=== PATIENT | male | born 1955 | race Two or more races ===

== ENCOUNTER 2017-10-15 08:12 | Outpatient (CLI) | payer OTHER | END 2017-10-15 13:57 | disposition home or self-care (01) | LOC: SONOGRAMA 08:12 | DX: R10.13 Epigastric pain (principal); K30 Functional dyspepsia; K62.5 Hemorrhage of anus and rectum; R63.4 Abnormal weight loss ==

== ENCOUNTER → 2018-01-20 | Outpatient (CLI) | payer OTHER | END | disposition home or self-care (01) | LOC: RAD 11:33 | DX: M54.5 Low back pain (principal) ==

== ENCOUNTER 2018-03-19 10:35 | Outpatient (CLI) | payer OTHER | END 2018-03-19 15:00 | disposition home or self-care (01) | LOC: TOM 10:35 | DX: J32.4 Chronic pansinusitis (principal) ==

== ENCOUNTER → 2018-08-06 | Outpatient (CLI) | payer OTHER | END | disposition home or self-care (01) | LOC: RAD 12:14 | DX: J40 Bronchitis, not specified as acute or chronic (principal) ==

== ENCOUNTER → 2018-08-11 13:21 | Outpatient (CLI) | payer OTHER | END | disposition home or self-care (01) | LOC: LAB 13:21 | DX: K64.4 Residual hemorrhoidal skin tags (principal); Z51.81 Encounter for therapeutic drug level monitoring ==

== ENCOUNTER 2018-08-20 07:32 | Outpatient (CLI) | payer OTHER | END 2018-08-20 07:43 | disposition home or self-care (01) | LOC: TOM 07:32 | DX: K64.4 Residual hemorrhoidal skin tags (principal); R10.84 Generalized abdominal pain | CPT/HCPCS: 74178; Q9965 ==

== ENCOUNTER 2018-09-10 10:50 | Outpatient (CLI) | payer OTHER | END 2018-09-10 16:01 | disposition home or self-care (01) | LOC: SONOGRAMA 10:50 | DX: E04.1 Nontoxic single thyroid nodule (principal); E03.5 Myxedema coma; E11.65 Type 2 diabetes mellitus with hyperglycemia ==

== ENCOUNTER 2019-01-05 09:34 | Outpatient (CLI) | payer OTHER | END 2019-01-05 09:42 | disposition home or self-care (01) | LOC: LAB 09:34 | DX: R97.21 Rising PSA following treatment for malignant neoplasm of prostate (principal) ==

== ENCOUNTER 2019-01-17 08:18 | Outpatient (CLI) | payer OTHER | END 2019-01-17 08:23 | disposition home or self-care (01) | LOC: LAB 08:18 | DX: E11.65 Type 2 diabetes mellitus with hyperglycemia (principal); K85.90 Acute pancreatitis without necrosis or infection, unspecified ==

== ENCOUNTER 2023-09-30 12:29 | Outpatient (CLI) | payer OTHER | END 2023-09-30 12:31 | disposition home or self-care (01) | LOC: RAD 12:29 | DX: M54.59 Other low back pain (principal) ==

== ENCOUNTER 2023-10-01 09:45 | Outpatient (CLI) | payer OTHER | END 2023-10-01 09:46 | disposition home or self-care (01) | LOC: NUCLEAR 09:45 | DX: I73.9 Peripheral vascular disease, unspecified (principal) ==

== ENCOUNTER 2023-10-06 09:41 | Outpatient (CLI) | payer OTHER | END 2023-10-06 09:42 | disposition home or self-care (01) | LOC: NUCLEAR 09:41 | DX: I73.9 Peripheral vascular disease, unspecified (principal) ==

== ENCOUNTER → 2024-01-01 11:07 | Outpatient (CLI) | payer OTHER | END | disposition home or self-care (01) | LOC: LAB 11:07 | PROVIDERS: ATTEND Internal Medicine Gastroenterology | DX: K57.30 Diverticulosis of large intestine without perforation or abscess without bleeding (principal); K21.00 Gastro-esophageal reflux disease with esophagitis, without bleeding; R63.4 Abnormal weight loss; K29.30 Chronic superficial gastritis without bleeding; K30 Functional dyspepsia ==

== ENCOUNTER 2024-01-02 09:47 | Outpatient (CLI) | payer OTHER ==
[2024-01-02 11:15] LABS: HEMATOCRIT 38.3 % (39.0-48.0); HEMOGLOBIN 12.9 g/dL (13-16.00); MEAN CELL VOLUME 100.3 fL (80.0-100.00); MEAN CORPUSCULAR HEMOGLOBIN 33.9 pg (27.00-32.0); MEAN CORPUSCULAR HGB CONC 33.8 g/dl (32.0-36.0); RED BLOOD COUNT 3.82 M/uL (4.00-6.00)
[2024-01-02 11:16] LABS: PLATELET COUNT 102 K/uL (150-450)
[2024-01-02 12:02] LABS: ALBUMIN 3.8 gm/dL (3.4-5.0); BILIRUBIN TOTAL 1.04 mg/dL (0.3-1.2); CALCIUM 9.2 mg/dL (8.5-10.1); CREATININE SERUM 0.8 mg/dL (0.70-1.30); GFR 95.85; GLOBULINA 3.4 G/DL (2.4-3.5); POTASSIUM 4.13 mEq/L (3.5-5.1); TOTAL PROTEIN 7.2 gm/dL (6.4-8.2)
== END 2024-01-02 09:49 | disposition home or self-care (01) ==
LOC: LAB 09:47
PROVIDERS: ATTEND Internal Medicine Gastroenterology
DX: K57.30 Diverticulosis of large intestine without perforation or abscess without bleeding (principal); K21.00 Gastro-esophageal reflux disease with esophagitis, without bleeding; R63.4 Abnormal weight loss; K29.30 Chronic superficial gastritis without bleeding; R10.13 Epigastric pain

== ENCOUNTER 2024-01-26 10:09 | Outpatient (CLI) | payer OTHER ==
[2024-01-26 12:49] LABS: HEMATOCRIT 40.1 % (39.0-48.0); HEMOGLOBIN 13.7 g/dL (13-16.00); MEAN CELL VOLUME 98.6 fL (80.0-100.00); MEAN CORPUSCULAR HEMOGLOBIN 33.6 pg (27.00-32.0); MEAN CORPUSCULAR HGB CONC 34.1 g/dl (32.0-36.0); RED BLOOD COUNT 4.06 M/uL (4.00-6.00); RED CELL DISTRIBUTION WIDTH 13.8 % (11.5-14.5)
[2024-01-26 12:50] LABS: PLATELET COUNT 103 K/uL (150-450)
[2024-01-26 13:40] LABS: % SATURACION 26.4 % (20-50); BILIRUBIN TOTAL 1.13 mg/dL (0.3-1.2); CALCIUM 9.5 mg/dL (8.5-10.1); CREATININE SERUM 0.88 mg/dL (0.70-1.30); FERRITIN 111.2 NG/ML (26-388); GFR 85.86; GLOBULINA 3.6 G/DL (2.4-3.5); POTASSIUM 4.1 mEq/L (3.5-5.1); PROSTATIC SPECIFIC ANTIGEN 2.1 NG/ML (0.010-4.00); T4 FREE 1.18 NG/ML (0.76-1.46); TOTAL PROTEIN 7.6 gm/dL (6.4-8.2); TSH 1.87 uIU/mL (0.358-3.74)
[2024-01-27 12:54] LABS: MANUAL PLATELET COUNT 258
[2024-01-27 12:58] LABS: PLATELET ESTIMATE NORMAL (NORMAL)
[2024-01-28 09:08] LABS: ALPHA FETO PROTEIN 1.8 ng/mL (0.0-8.4); hav igm Negative (Negative); hcv Non Reactive (Non Reactive); hep b c Negative (Negative)
[2024-01-28 13:07] LABS: hgb f 0 % (0.0-2.0); hgb s 0 % (0.0)
== END 2024-01-26 10:10 | disposition home or self-care (01) ==
LOC: LAB 10:09
PROVIDERS: ATTEND Internal Medicine Hematology & Oncology
DX: D69.6 Thrombocytopenia, unspecified (principal); E11.9 Type 2 diabetes mellitus without complications; R63.4 Abnormal weight loss; K29.40 Chronic atrophic gastritis without bleeding; D50.8 Other iron deficiency anemias; R79.9 Abnormal finding of blood chemistry, unspecified; I10 Essential (primary) hypertension; R74.02 Elevation of levels of lactic acid dehydrogenase [LDH]; K76.89 Other specified diseases of liver; D63.8 Anemia in other chronic diseases classified elsewhere; D55.0 Anemia due to glucose-6-phosphate dehydrogenase [G6PD] deficiency; E03.8 Other specified hypothyroidism; Z11.59 Encounter for screening for other viral diseases; B17.9 Acute viral hepatitis, unspecified; R97.20 Elevated prostate specific antigen [PSA]; R77.2 Abnormality of alphafetoprotein

== ENCOUNTER 2024-02-01 09:45 | Outpatient (CLI) | payer OTHER | END 2024-02-01 09:55 | disposition home or self-care (01) | LOC: TOM 09:45 | PROVIDERS: ATTEND Internal Medicine Hematology & Oncology | DX: R10.13 Epigastric pain (principal); K63.4 Enteroptosis; D69.6 Thrombocytopenia, unspecified; D11.9 Benign neoplasm of major salivary gland, unspecified; K29.40 Chronic atrophic gastritis without bleeding | CPT/HCPCS: 71270; 74178; Q9965 ==

== ENCOUNTER 2024-03-06 20:11 | Emergency (ER) | payer OTHER ==
[~2024-03-06] VITALS: Ht 170.2 cm; Wt 54.0 kg
[2024-03-06] MEDS ORDERED: PROPAFENONE HC225 M1 (20:45)
[2024-03-06] MEDS ORDERED: PENTOXIFYLLINE400 MG PO (20:46)
[2024-03-06] MEDS ORDERED: ACID REDUCER20 M1 (20:46)
[2024-03-06] MEDS ORDERED: FOLIC ACID20 MG (20:46)
[2024-03-06] MEDS ORDERED: ATORVASTATIN CA10 MG PO (20:46)
[2024-03-06] MEDS ORDERED: TAMS0.4C PO (20:47)
[2024-03-06] MEDS ORDERED: MIRTAZAPINE7.5 MG (20:47)
[2024-03-06] MEDS ORDERED: PROSCAR5 MG PO (20:47)
[2024-03-06] MEDS ORDERED: LANTUS SOL100 UNIT/1 SQ (20:48)
[2024-03-06] MEDS ORDERED: DRAMAMINE LESS25 MG (20:48)
[2024-03-06] MEDS ORDERED: ACETAMINOPHEN 500 MG GEL..CAP PO ONE (21:45)
[2024-03-06 22:06] LABS: HEMATOCRIT 35.9 % (39.0-48.0); HEMOGLOBIN 12.4 g/dL (13-16.00); MEAN CELL VOLUME 98.3 fL (80.0-100.00); MEAN CORPUSCULAR HEMOGLOBIN 33.9 pg (27.00-32.0); MEAN CORPUSCULAR HGB CONC 34.4 g/dl (32.0-36.0); RED BLOOD COUNT 3.65 M/uL (4.00-6.00); RED CELL DISTRIBUTION WIDTH 13.9 % (11.5-14.5)
[2024-03-06 22:09] LABS: PLATELET COUNT 119 K/uL (150-450)
[2024-03-06 22:18] LABS: ALBUMIN 4.2 gm/dL (3.4-5.0); BILIRUBIN TOTAL 1.33 mg/dL (0.3-1.2); CALCIUM 10.2 mg/dL (8.5-10.1); CREATININE SERUM 0.64 mg/dL (0.70-1.30); GLOBULINA 3.2 G/DL (2.4-3.5); POTASSIUM 3.54 mEq/L (3.5-5.1); TOTAL PROTEIN 7.4 gm/dL (6.4-8.2)
[2024-03-06] MEDS ORDERED: KETOROLAC TROMETHAMINE 30 MG VIAL IM ONE (22:45)
== END 2024-03-06 23:18 | disposition home or self-care (01) ==
LOC: ER 20:12
PROVIDERS: General Practice
DX: R53.81 Other malaise (principal); R51.9 Headache, unspecified; E11.9 Type 2 diabetes mellitus without complications; Z79.4 Long term (current) use of insulin
CPT/HCPCS: 36415; 93005; 96372; 99282; J1885

== ENCOUNTER 2024-04-22 13:41 | Outpatient (CLI) | payer OTHER ==
[~2024-04-22 13:41] MED LIST: ACID REDUCER20 M1; ATORVASTATIN CA10 MG PO; DRAMAMINE LESS25 MG; FOLIC ACID20 MG; LANTUS SOL100 UNIT/1 SQ; MIRTAZAPINE7.5 MG; PENTOXIFYLLINE400 MG PO; PROPAFENONE HC225 M1; PROSCAR5 MG PO; TAMS0.4C PO
== END 2024-04-22 13:58 | disposition home or self-care (01) ==
LOC: MRI 13:41
PROVIDERS: ATTEND Neuromusculoskeletal Medicine & OMM
DX: M51.26 Other intervertebral disc displacement, lumbar region (principal); M51.36 Other intervertebral disc degeneration, lumbar region; M50.20 Other cervical disc displacement, unspecified cervical region; M50.30 Other cervical disc degeneration, unspecified cervical region
CPT/HCPCS: 72141; 72148

== ENCOUNTER → 2024-06-17 06:59 | Outpatient (CLI) | payer OTHER ==
[2024-06-17 07:37] LABS: HEMATOCRIT 38.4 % (39.0-48.0); MEAN CORPUSCULAR HEMOGLOBIN 33.6 pg (27.00-32.0); MEAN CORPUSCULAR HGB CONC 33.9 g/dl (32.0-36.0); RED BLOOD COUNT 3.88 M/uL (4.00-6.00); RED CELL DISTRIBUTION WIDTH 13.5 % (11.5-14.5)
[2024-06-17 07:38] LABS: PLATELET COUNT 101 K/uL (150-450)
[2024-06-17 07:41] LABS: URINE PROT QUANT 24HR < 5.00 MG/DL
[2024-06-17 08:25] LABS: ALBUMIN 3.9 gm/dL (3.4-5.0); BILIRUBIN TOTAL 1.41 mg/dL (0.3-1.2); CALCIUM 9.2 mg/dL (8.5-10.1); CREATININE SERUM 0.74 mg/dL (0.70-1.30); GFR 104.87; GLOBULINA 3.1 G/DL (2.4-3.5); POTASSIUM 3.85 mEq/L (3.5-5.1)
[2024-06-17 08:31] LABS: URINE PROT QUANT 24 HR 136.25 MG/24HR (42-225)
[2024-06-17 08:32] LABS: CREATINE CLEARANCE 96.6 ML/MIN (97-137); CREATININE SERUM 0.74 mg/dL (0.8-1.3)
[2024-06-17 09:13] LABS: MANUAL PLATELET COUNT 174
[2024-06-17 09:14] LABS: PLATELET ESTIMATE NORMAL (NORMAL)
[2024-06-18 11:07] LABS: kappa lambda r 1.52 (0.26-1.65); kappa light 22.4 mg/L (3.3-19.4); lambda light 14.7 mg/L (5.7-26.3)
[2024-06-19 17:04] LABS: BETA-2-MICROGLOBULINA 1.4 mg/L (0.6-2.4)
[2024-06-21 13:11] LABS: IMM A 231 mg/dL (61-437); IMM G 1277 mg/dL (603-1613); IMM M 92 mg/dL (20-172); a:g ratio 1.4 (0.7-1.7); alpha 1 g 0.2 g/dL (0.0-0.4); alpha 2 0.6 g/dL (0.4-1.0); beta g 0.8 g/dL (0.7-1.3); gamma g 1.2 g/dL (0.4-1.8); globulin t 2.8 g/dL (2.2-3.9); m spike Not Observed g/dL (Not Observed); prot total 6.6 g/dL (6.0-8.5)
[2024-06-21 15:07] LABS: alp 0 % (.); alph 2 0 % (.); beta 0 % (.); gam 0 % (.); m spi 0 % (Not Observed); prot 20.7 mg/dL (Not Estab.)
== END | disposition home or self-care (01) ==
LOC: LAB 06:59
PROVIDERS: ATTEND Internal Medicine Hematology & Oncology
DX: D69.6 Thrombocytopenia, unspecified (principal); E11.9 Type 2 diabetes mellitus without complications; R63.4 Abnormal weight loss; K29.40 Chronic atrophic gastritis without bleeding; D50.8 Other iron deficiency anemias; I10 Essential (primary) hypertension; R79.9 Abnormal finding of blood chemistry, unspecified; R74.02 Elevation of levels of lactic acid dehydrogenase [LDH]; K76.89 Other specified diseases of liver; D47.2 Monoclonal gammopathy; C90.00 Multiple myeloma not having achieved remission; D63.1 Anemia in chronic kidney disease

== ENCOUNTER 2024-07-13 08:37 | Outpatient (CLI) | payer OTHER ==
[2024-07-13 09:29] LABS: HEMATOCRIT 37.3 % (39.0-48.0); HEMOGLOBIN 12.5 g/dL (13-16.00); MEAN CORPUSCULAR HEMOGLOBIN 34.2 pg (27.00-32.0); MEAN CORPUSCULAR HGB CONC 33.5 g/dl (32.0-36.0); RED BLOOD COUNT 3.66 M/uL (4.00-6.00); RED CELL DISTRIBUTION WIDTH 13.4 % (11.5-14.5)
[2024-07-13 09:30] LABS: PLATELET COUNT 104 K/uL (150-450)
[2024-07-13 14:45] LABS: FOLIC ACID > 20.00 ng/ml (4.78-20)
== END 2024-07-13 08:41 | disposition home or self-care (01) ==
LOC: LAB 08:37
PROVIDERS: ATTEND Internal Medicine Gastroenterology
DX: K30 Functional dyspepsia (principal); K57.30 Diverticulosis of large intestine without perforation or abscess without bleeding; K29.40 Chronic atrophic gastritis without bleeding; D64.9 Anemia, unspecified

== ENCOUNTER 2024-08-11 09:00 | Outpatient (CLI) | payer OTHER ==
[2024-08-11 09:33] LABS: HEMATOCRIT 36.8 % (39.0-48.0); HEMOGLOBIN 12.7 g/dL (13-16.00); MEAN CELL VOLUME 98.8 fL (80.0-100.00); MEAN CORPUSCULAR HGB CONC 34.4 g/dl (32.0-36.0); RED BLOOD COUNT 3.72 M/uL (4.00-6.00); RED CELL DISTRIBUTION WIDTH 14.3 % (11.5-14.5)
[2024-08-11 09:38] LABS: PLATELET COUNT 101 K/uL (150-450)
[2024-08-11 10:15] LABS: PH,URINE 5.5 (5.0-8.0); URINE APPEARANCE Clear; URINE BILIRRUBIN Negative (NEGATIVE); URINE BLOOD Negative; URINE COLOR Yellow; URINE GLUCOSE Negative (NEGATIVE); URINE KETONE Negative (NEGATIVE); URINE LEUKOCYTE Negative; URINE NITRATE Negative; URINE PROTEIN Negative (NEGATIVE); URINE UROBILINOGEN 0.2 E.U./dl
[2024-08-11 10:31] LABS: URINE BACTERIA 0 uL (0.0-1933); URINE EPITHELIAL CELLS 0.9 uL (0.0-38.8); URINE WBC 0.7 uL (0.0-23.2)
[2024-08-11 10:55] LABS: ALBUMIN 3.9 gm/dL (3.4-5.0); BILIRUBIN TOTAL 0.94 mg/dL (0.3-1.2); CHOL HDL RATIO 1.9 (0-5.0); CREATININE SERUM 0.69 mg/dL (0.70-1.30); GFR 113.69; GLOBULINA 3.1 G/DL (2.4-3.5); POTASSIUM 4.15 mEq/L (3.5-5.1); T4 TOTAL 7.22 UG/DL (4.5-12.1); TSH 1.67 uIU/mL (0.358-3.74)
== END 2024-08-11 09:03 | disposition home or self-care (01) ==
LOC: LAB 09:00
PROVIDERS: ATTEND Internal Medicine
DX: R68.89 Other general symptoms and signs (principal); I11.9 Hypertensive heart disease without heart failure; E78.00 Pure hypercholesterolemia, unspecified; R31.9 Hematuria, unspecified; E03.9 Hypothyroidism, unspecified; E11.9 Type 2 diabetes mellitus without complications

== ENCOUNTER → 2024-08-16 08:16 | Outpatient (CLI) | payer OTHER ==
[2024-08-16 09:32] LABS: HEMATOCRIT 37.9 % (39.0-48.0); HEMOGLOBIN 12.8 g/dL (13-16.00); MEAN CELL VOLUME 101.3 fL (80.0-100.00); MEAN CORPUSCULAR HEMOGLOBIN 34.2 pg (27.00-32.0); MEAN CORPUSCULAR HGB CONC 33.7 g/dl (32.0-36.0); RED BLOOD COUNT 3.74 M/uL (4.00-6.00); RED CELL DISTRIBUTION WIDTH 14.5 % (11.5-14.5)
[2024-08-16 09:36] LABS: PLATELET COUNT 102 K/uL (150-450)
[2024-08-16 09:39] LABS: ERYTHROCYTE SEDIMENTATION RATE 6 mm/hr
[2024-08-16 09:55] LABS: ALBUMIN 3.9 gm/dL (3.4-5.0); ALKALINE PHOSPHATASE 78 U/L (50-136); ALT/SGPT 15 U/L (12-78); ANION GAP 6 (10.0-20.0); AST/SGOT 12 U/L (15-37); BILIRUBIN TOTAL 0.77 mg/dL (0.3-1.2); BLOOD UREA NITROGEN 14 mg/dL (7-18); BUN CREA RATIO 20 (7.0-25.0); CALCIUM 9.1 mg/dL (8.5-10.1); CARBON DIOXIDE 32 mEq/L (21-32); CHLORIDE 107 mmol/L (98-107); CHOL HDL RATIO 1.9 (0-5.0); CHOLESTEROL 156 mg/dL (0-200); GFR 111.82; GLOBULINA 3.3 G/DL (2.4-3.5); GLUCOSE FASTING 98 mg/dL (65-100); HDL 84 mg/dl (40-60); LDL 61 mg/dl (0-130); OSMOLALITY SERUM 282 MOSM/KG (275-295); PHOSPHOKINASE CREATININE 124 U/L (39-308); POTASSIUM 4.08 mEq/L (3.5-5.1); SODIUM 141 mmol/L (136-145); T4 FREE 0.92 NG/ML (0.76-1.46); TOTAL PROTEIN 7.2 gm/dL (6.4-8.2); TRIGLYCERIDES 55 mg/dL (0-150); VLDL 11 (0-39)
[2024-08-16 09:56] LABS: C-REACTIVE PROTEIN < 0.29 MG/DL (0.00-0.29)
[2024-08-17 11:42] LABS: PROLACTIN 8.3 ng/mL (3.6-25.2)
== END | disposition home or self-care (01) ==
LOC: LAB 08:16
PROVIDERS: ATTEND Neuromusculoskeletal Medicine & OMM
DX: G62.9 Polyneuropathy, unspecified (principal); R20.2 Paresthesia of skin; E03.9 Hypothyroidism, unspecified; E11.9 Type 2 diabetes mellitus without complications; E22.1 Hyperprolactinemia; E78.00 Pure hypercholesterolemia, unspecified; E78.1 Pure hyperglyceridemia; M62.9 Disorder of muscle, unspecified

== ENCOUNTER 2024-08-22 08:40 | Outpatient (CLI) | payer OTHER ==
[2024-08-22 09:20] LABS: HEMATOCRIT 36.7 % (39.0-48.0); HEMOGLOBIN 12.3 g/dL (13-16.00); MEAN CELL VOLUME 101.2 fL (80.0-100.00); MEAN CORPUSCULAR HGB CONC 33.6 g/dl (32.0-36.0); RED BLOOD COUNT 3.63 M/uL (4.00-6.00); RED CELL DISTRIBUTION WIDTH 14.5 % (11.5-14.5)
[2024-08-22 09:21] LABS: PLATELET COUNT 105 K/uL (150-450)
[2024-08-22 10:15] LABS: ALBUMIN 3.7 gm/dL (3.4-5.0); BILIRUBIN TOTAL 0.97 mg/dL (0.3-1.2); CALCIUM 9.1 mg/dL (8.5-10.1); CREATININE SERUM 0.72 mg/dL (0.70-1.30); GFR 108.24; GLOBULINA 3.2 G/DL (2.4-3.5); POTASSIUM 4.21 mEq/L (3.5-5.1); TOTAL PROTEIN 6.9 gm/dL (6.4-8.2)
[2024-08-22 13:16] LABS: MANUAL PLATELET COUNT 294
[2024-08-22 13:18] LABS: PLATELET ESTIMATE NORMAL (NORMAL)
== END 2024-08-22 08:41 | disposition home or self-care (01) ==
LOC: LAB 08:40
PROVIDERS: ATTEND Internal Medicine Hematology & Oncology
DX: D69.6 Thrombocytopenia, unspecified (principal); E11.9 Type 2 diabetes mellitus without complications; R63.4 Abnormal weight loss; K29.40 Chronic atrophic gastritis without bleeding; I10 Essential (primary) hypertension; R74.02 Elevation of levels of lactic acid dehydrogenase [LDH]; K76.89 Other specified diseases of liver; R79.9 Abnormal finding of blood chemistry, unspecified; D50.8 Other iron deficiency anemias

== ENCOUNTER 2024-09-02 08:52 | Outpatient (CLI) | payer OTHER | END 2024-09-02 09:02 | disposition home or self-care (01) | LOC: SONOGRAMA 08:52 | PROVIDERS: ATTEND Internal Medicine | DX: R70.0 Elevated erythrocyte sedimentation rate (principal); R71.8 Other abnormality of red blood cells ==

== ENCOUNTER 2024-12-16 09:20 | Outpatient (CLI) | payer OTHER ==
[2024-12-16 11:28] LABS: PH,URINE 5.5 (5.0-8.0); URINE APPEARANCE Clear; URINE BILIRRUBIN Negative (NEGATIVE); URINE BLOOD Negative; URINE COLOR Yellow; URINE GLUCOSE Negative (NEGATIVE); URINE KETONE Negative (NEGATIVE); URINE LEUKOCYTE Negative; URINE NITRATE Negative; URINE PROTEIN Negative (NEGATIVE); URINE UROBILINOGEN 0.2 E.U./dl
[2024-12-16 11:31] LABS: URINE RBC 4.2 uL (0.0-20.8)
[2024-12-16 11:33] LABS: HEMATOCRIT 40.1 % (39.0-48.0); HEMOGLOBIN 13.7 g/dL (13-16.00); MEAN CELL VOLUME 98.6 fL (80.0-100.00); MEAN CORPUSCULAR HEMOGLOBIN 33.6 pg (27.00-32.0); MEAN CORPUSCULAR HGB CONC 34.1 g/dl (32.0-36.0); RED BLOOD COUNT 4.07 M/uL (4.00-6.00); RED CELL DISTRIBUTION WIDTH 14.1 % (11.5-14.5)
[2024-12-16 11:36] LABS: PLATELET COUNT 98 K/uL (150-450)
[2024-12-16 11:38] LABS: URINE BACTERIA 1.2 uL (0.0-1933); URINE CAST 0.14 uL (0.0-1.40); URINE EPITHELIAL CELLS 0.3 uL (0.0-38.8); URINE WBC 0.7 uL (0.0-23.2)
[2024-12-16 12:12] LABS: BILIRUBIN TOTAL 1.35 mg/dL (0.3-1.2); CALCIUM 9.4 mg/dL (8.5-10.1); CREATININE SERUM 0.73 mg/dL (0.70-1.30); GFR 106.22; GLOBULINA 3.4 G/DL (2.4-3.5); POTASSIUM 4.41 mEq/L (3.5-5.1); T4 TOTAL 8.61 UG/DL (4.5-12.1); TOTAL PROTEIN 7.4 gm/dL (6.4-8.2); TSH 1.6 uIU/mL (0.358-3.74)
== END 2024-12-16 09:24 | disposition home or self-care (01) ==
LOC: LAB 09:20
DX: R68.89 Other general symptoms and signs (principal); I11.9 Hypertensive heart disease without heart failure; E78.00 Pure hypercholesterolemia, unspecified; R31.9 Hematuria, unspecified; E03.9 Hypothyroidism, unspecified; E11.9 Type 2 diabetes mellitus without complications

== ENCOUNTER 2025-01-05 09:25 | Outpatient (CLI) | payer OTHER ==
[2025-01-05 10:05] LABS: PH,URINE 6.5 (5.0-8.0); URINE APPEARANCE Clear; URINE BILIRRUBIN Negative (NEGATIVE); URINE BLOOD Negative; URINE COLOR Yellow; URINE GLUCOSE Negative (NEGATIVE); URINE KETONE Negative (NEGATIVE); URINE LEUKOCYTE Negative; URINE NITRATE Negative; URINE PROTEIN Negative (NEGATIVE); URINE UROBILINOGEN 0.2 E.U./dl
[2025-01-05 10:06] LABS: URINE RBC 3.2 uL (0.0-20.8)
[2025-01-05 10:10] LABS: URINE BACTERIA 3.6 uL (0.0-1933); URINE EPITHELIAL CELLS 0.1 uL (0.0-38.8); URINE WBC 0.9 uL (0.0-23.2)
== END 2025-01-05 09:26 | disposition home or self-care (01) ==
LOC: LAB 09:25
PROVIDERS: ATTEND Urology
DX: R97.21 Rising PSA following treatment for malignant neoplasm of prostate (principal)

== ENCOUNTER → 2025-02-15 10:05 | Outpatient (CLI) | payer OTHER ==
[2025-02-15 11:02] LABS: HEMATOCRIT 38.2 % (39.0-48.0); HEMOGLOBIN 12.6 g/dL (13-16.00); MEAN CELL VOLUME 100.6 fL (80.0-100.00); MEAN CORPUSCULAR HEMOGLOBIN 33.2 pg (27.00-32.0); MEAN CORPUSCULAR HGB CONC 33.1 g/dl (32.0-36.0)
[2025-02-15 11:04] LABS: PLATELET COUNT 101 K/uL (150-450)
[2025-02-15 11:57] LABS: % SATURACION 25.2 % (20-50); ALBUMIN 3.8 gm/dL (3.4-5.0); BILIRUBIN TOTAL 1.05 mg/dL (0.3-1.2); CALCIUM 9.2 mg/dL (8.5-10.1); CREATININE SERUM 0.74 mg/dL (0.70-1.30); FERRITIN 94.9 NG/ML (26-388); GFR 104.56; GLOBULINA 3.1 G/DL (2.4-3.5); POTASSIUM 3.6 mEq/L (3.5-5.1); PROSTATIC SPECIFIC ANTIGEN 2.22 NG/ML (0.010-4.00); TOTAL PROTEIN 6.9 gm/dL (6.4-8.2)
[2025-02-15 13:21] LABS: FOLIC ACID > 20.00 ng/ml (4.78-20); VITAMIN D3 25 HYDROXY 80.27 ng/ml (30-120)
[2025-02-15 13:38] LABS: MANUAL PLATELET COUNT 178; PLATELET ESTIMATE NORMAL (NORMAL)
[2025-02-17 09:07] LABS: ALPHA FETO PROTEIN < 1.8 ng/mL (0.0-8.4)
[2025-02-17 11:11] LABS: TRANSFERIN 213 mg/dL (177-329)
== END | disposition home or self-care (01) ==
LOC: LAB 10:05
PROVIDERS: ATTEND Internal Medicine Hematology & Oncology
DX: D72.818 Other decreased white blood cell count (principal); D69.6 Thrombocytopenia, unspecified; D53.0 Protein deficiency anemia; E11.9 Type 2 diabetes mellitus without complications; R63.4 Abnormal weight loss; K29.40 Chronic atrophic gastritis without bleeding; D53.9 Nutritional anemia, unspecified; D50.8 Other iron deficiency anemias; R79.9 Abnormal finding of blood chemistry, unspecified; I10 Essential (primary) hypertension; R74.02 Elevation of levels of lactic acid dehydrogenase [LDH]; K76.89 Other specified diseases of liver; C25.9 Malignant neoplasm of pancreas, unspecified; R97.8 Other abnormal tumor markers; R97.20 Elevated prostate specific antigen [PSA]; R77.2 Abnormality of alphafetoprotein

== ENCOUNTER 2025-03-09 09:30 | Outpatient (CLI) | payer OTHER | END 2025-03-09 09:36 | disposition home or self-care (01) | LOC: SONOGRAMA 09:30 | PROVIDERS: ATTEND Internal Medicine Hematology & Oncology | DX: D61.818 Other pancytopenia (principal) ==

== ENCOUNTER → 2025-03-13 06:57 | Outpatient (CLI) | payer OTHER ==
[2025-03-13 08:04] LABS: BASO % 1.5 % (0.1-1.2); EOS # 0.42 (0.04-0.54); HEMATOCRIT 36.4 % (40.1-51.0); HEMOGLOBIN 12.5 g/dL (13.7-17.5); LYMPH % 42.9 % (19.3-53.1); MONO # 0.38 (0.24-0.82); MONO % 8.2 % (4.7-12.5); NEUT # 1.78 (1.56-6.13); NEUT % 38.2 % (34.0-71.1); RED BLOOD COUNT 3.79 M/uL (4.63-6.08); RED CELL DISTRIBUTION WIDTH 14.1 % (11.6-14.4)
[2025-03-13 08:05] LABS: PLATELET COUNT 113 K/uL (163-369)
[2025-03-13 08:35] LABS: ALBUMIN 3.7 gm/dL (3.4-5.0); BILIRUBIN TOTAL 0.91 mg/dL (0.3-1.2); CALCIUM 8.8 mg/dL (8.5-10.1); CREATININE SERUM 0.74 mg/dL (0.70-1.30); GFR 104.56; GLOBULINA 3.2 G/DL (2.4-3.5); POTASSIUM 3.89 mEq/L (3.5-5.1); TOTAL PROTEIN 6.9 gm/dL (6.4-8.2)
[2025-03-13 10:46] LABS: CORTISOL 18.1 ug/dl
[2025-03-15 09:09] LABS: ACTH 46.2 pg/mL (7.2-63.3)
[2025-03-15 11:13] LABS: kappa lambda r 1.65 (0.26-1.65); lambda light 13.3 mg/L (5.7-26.3)
== END | disposition home or self-care (01) ==
LOC: LAB 06:57
PROVIDERS: ATTEND Internal Medicine Hematology & Oncology
DX: D61.818 Other pancytopenia (principal)